=== PATIENT | female | born 1945 | race American Indian/Alaskan Native ===

== ENCOUNTER 2016-06-02 09:51 | Outpatient (CLI) | payer OTHER ==
[2016-06-02] MEDS ORDERED: FLUSH HEPARIN IV ONE (10:14)
--- NOTE | 2016-06-03 09:22 | Nuclear Medicine Report ---
NUCLEAR MEDICINE WHOLE-BODY BONE SCAN: 06/02/16 CLINICAL: History of right breast cancer status post right mastectomy. COMPARISON: 10/09/15 PET/CT TECHNIQUE: 25 at zeromillicuries technetium 99m MDP was injected intravenously and whole body scans were obtained at 3 hours. FINDINGS: 2 small foci of uptake in the left anterior chest are suspicious for rib lesions. Otherwise normal distribution of radionuclide in the skeleton and soft tissues. IMPRESSION: 2 foci of uptake in the left anterior chest are suspicious for rib lesions.
== END 2016-06-02 09:52 | disposition home or self-care (01) ==
LOC: NM 09:51
PROVIDERS: ATTEND Internal Medicine Hematology & Oncology
DX: C50.911 Malignant neoplasm of unspecified site of right female breast (principal); M89.8X9 Other specified disorders of bone, unspecified site; Z90.11 Acquired absence of right breast and nipple
CPT/HCPCS: 78306; 93306; A9503; J1642